=== PATIENT | female | born 1960 | race Caucasian/White ===

== ENCOUNTER 2017-08-26 14:08 | Outpatient (RCR) | payer OTHER | END 2017-09-11 | LOC: OT 14:08 | PROVIDERS: ATTEND Surgery Surgery of the Hand | DX: S52.531D Colles' fracture of right radius, subsequent encounter for closed fracture with routine healing (principal); M25.531 Pain in right wrist; M25.631 Stiffness of right wrist, not elsewhere classified | CPT/HCPCS: 97110; 97139; 97165; L3906 ==